=== PATIENT | male | born 1960 | race Caucasian/White ===

== ENCOUNTER 2019-03-25 02:33 | Emergency (ER) | payer OTHER ==
[~2019-03-25] VITALS: Ht 188 cm; Wt 154.2 kg
--- NOTE | 2019-03-25 03:00 | NUR ---
PT PRESENTED TO THE ER WITH A C/O ANXIETY/ PANIC ATTACK. PT AMBULATED TO ER 1 WITH A STEADY GAIT. RESP EVEN AND UNLABORED. VSS.
[2019-03-25] MEDS ORDERED: LORAZEPAM 0.5 MG TABLET ONE (04:33)
[2019-03-25 04:49] VITALS: BP 117/77
--- NOTE | 2019-03-25 04:50 | NUR ---
Patient discharged to home in stable condition. Written and verbal after care instructions given. Patient verbalizes understanding of instruction. PT AMBULATED OUT WITH A STEADY GAIT. VSS.
[2019-03-25] MEDS ORDERED: LORAZEPAM 0.5 MG TABLET PO ONE (05:00)
== END 2019-03-25 04:54 | disposition home or self-care (01) ==
LOC: ER 02:37
DX: F41.9 Anxiety disorder, unspecified (principal); I10 Essential (primary) hypertension; E11.9 Type 2 diabetes mellitus without complications; F17.200 Nicotine dependence, unspecified, uncomplicated; E78.5 Hyperlipidemia, unspecified; Z98.890 Other specified postprocedural states
CPT/HCPCS: 71045-TC

== ENCOUNTER 2020-05-30 19:33 | Emergency (ER) | payer BC, OTHER ==
[~2020-05-30] VITALS: Ht 193 cm; Wt 158.8 kg
--- NOTE | 2020-05-30 19:48 | NUR ---
PT AAOX4. AMBULATORY WITH STEADY GAIT, BIBSELF C/O R FLANK PAIN SINCE 1PM "POSSIBLE KIDNEY STONE." PLACED IN BED 9 ON MONITOR AND PULSE OX. VSS. AWAITING PA FOR EVAL AND ORDERS.
--- NOTE | 2020-05-30 20:00 | NUR ---
AND PA AT BEDSIDE FOR EVAL.
[2020-05-30] MEDS ORDERED: ONDANSETRON HCL/PF 4 MG/2 ML VIAL ONE (20:12)
[2020-05-30] MEDS ORDERED: MORPHINE SULFATE INJ 4 MG/ML DISP.SYRIN ONE (20:12)
[2020-05-30] MEDS ORDERED: KETOROLAC TROMETHAMINE INJ 30 MG/ML VIAL ONE (20:12)
--- NOTE | 2020-05-30 20:20 | NUR ---
LINE ESTABLISHED RAC 20G, BLOOD DRAWN AND SENT TO LAB. PT MEDICATED, STATED 04/23 PAIN, WILL REASSES SOON.
--- NOTE | 2020-05-30 20:21 | NUR ---
AWAITING URINE SAMPLE, PT UNABLE TO PROVIDE URINE SAMPLE.
[2020-05-30 20:26] LABS: BASOPHILS # (AUTO) 0.1 /CMM (0.0-0.2); BASOPHILS % (AUTO) 1.1 % (0.0-2.0); EOSINOPHILS % (AUTO) 2.1 % (0.0-6.0); HEMATOCRIT 47 % (39-51); HEMOGLOBIN 15.8 g/dL (13.5-17.5); LYMPHOCYTES # (AUTO) 1.7 /CMM (0.8-4.8); LYMPHOCYTES % (AUTO) 15.7 % (20.0-44.0); MEAN CORPUSCULAR HGB CONC 34 g/dl (31.0-36.0); MEAN CORPUSCULAR VOLUME 94 fL (80-96); MONOCYTES % (AUTO) 9.7 % (2.0-12.0); NEUTROPHILS # (AUTO) 7.6 /CMM (1.8-8.9); NEUTROPHILS % (AUTO) 71.4 % (43.0-81.0); PLATELET COUNT (AUTO) 218 /CMM (150-450); RED BLOOD CELL COUNT(AUTO) 4.94 MIL/uL (4.5-6.0); WHITE BLOOD COUNT (AUTO) 10.7 K/uL (4.3-11.0)
[2020-05-30 20:30] LABS: CREATININE 1.4 mg/dL (0.6-1.3); POTASSIUM 3.4 mmol/L (3.5-5.1)
[2020-05-30] MEDS ORDERED: ONDANSETRON HCL/PF 4 MG/2 ML VIAL IVP ONE (20:30)
[2020-05-30] MEDS ORDERED: IV NS 0.9% 1,000 ML BAG IV ONE (20:30)
[2020-05-30] MEDS ORDERED: KETOROLAC TROMETHAMINE INJ 30 MG/ML VIAL IV ONE (20:30)
[2020-05-30] MEDS ORDERED: MORPHINE SULFATE INJ 2 MG/ML DISP.SYRIN IV ONE (20:30)
[2020-05-30 20:37] LABS: BILIRUBIN,DIRECT 0.2 mg/dL (0.0-0.2); BILIRUBIN,TOTAL 0.7 mg/dL (0.2-1.0); TOTAL PROTEIN, SERUM 7.5 g/dL (6.4-8.2)
--- NOTE | 2020-05-30 20:39 | NUR ---
SPOKE TO PT, PAIN 210 NOW.
--- NOTE | 2020-05-30 20:51 | NUR ---
UNABLE TO PROVIDE URINE.
[2020-05-30] MEDS ORDERED: IV NS 0.9% 1,000 ML IV ONE ×2 (21:00→21:30)
--- NOTE | 2020-05-30 21:00 | NUR ---
PER PA, ORDERED 1L NS. 1L NS STARTED.
--- NOTE | 2020-05-30 21:13 | NUR ---
AMBULATED TO THE RESTROOM TO PROVIDE URINE SAMPLE
--- NOTE | 2020-05-30 21:19 | NUR ---
URINE PROVIDED, SENT TO LAB. PT HOOKED BACK TO IV AND MONITOR.
[2020-05-30 21:32] LABS: APPEARANCE,URINE Clear (CLEAR); BILIRUBIN,URINE Negative (NEGATIVE); BLOOD, URINE Large Ery/uL (NEGATIVE); COLOR,URINE Yellow (YELLOW); KETONES,URINE Negative (NEGATIVE); LEUKOCYTE ESTERASE ,URINE Negative (NEGATIVE); NITRITE, URINE Negative (NEGATIVE); PH,URINE 5.5 (5.0-8.0); PROTEIN,URINE Trace mg/dl (NEGATIVE); UGLUCOSE Negative (NEGATIVE); UROBILINOGEN,URINE 0.2 EU/dL (0.2)
[2020-05-30 21:33] LABS: BACTERIA,URINE Rare /HPF (None Seen); SQUAMOUS EPITHELIAL CELL,UR Rare /HPF (None Seen); WBC,URINE 0-2 /HPF (0-3)
--- NOTE | 2020-05-30 21:51 | NUR ---
AWAITING FOR SECOND L NS TO FINISH THEN DC.
[2020-05-30 22:06] VITALS: BP 127/71
--- NOTE | 2020-05-30 22:06 | NUR ---
IV removed. Catheter intact and site benign. Pressure and 4x4 applied to site. No bleeding noted.Patient discharged to home in stable condition. Written and verbal after care instructions given. Patient verbalizes understanding of instruction and RX. Pt ambulated with steady gait. vss.
== END 2020-05-30 22:17 | disposition home or self-care (01) ==
LOC: ER 19:35
DX: N23 Unspecified renal colic (principal); N28.9 Disorder of kidney and ureter, unspecified; R74.0 Nonspecific elevation of levels of transaminase and lactic acid dehydrogenase [LDH]; E66.8 Other obesity; E11.9 Type 2 diabetes mellitus without complications; I10 Essential (primary) hypertension; E78.00 Pure hypercholesterolemia, unspecified; E78.5 Hyperlipidemia, unspecified; Z68.41 Body mass index [BMI] 40.0-44.9, adult; Z98.890 Other specified postprocedural states
CPT/HCPCS: 36415; 80048; 80076; 81001; 85025; 96361; 96374; 96375; 99284; J1885; J2270; J2405; J7030; 81000-TC